=== PATIENT | male | born 1975 | race Caucasian/White ===

== ENCOUNTER 2018-03-21 23:34 | Emergency (ER) | payer SELFPAY ==
[~2018-03-21] VITALS: Ht 185.4 cm; Wt 93.0 kg
[2018-03-21] MEDS ORDERED: PLEASE ENTER ALLERGIES MC SCH (23:45)
[2018-03-21 23:53] LABS: BASOPHILS # (AUTO) 0.04 x10^3/uL (0-0.1); BASOPHILS % (AUTO) 0 % (0-1); EOSINOPHILS # (AUTO) 0.01 x10^3/uL (0-0.4); EOSINOPHILS % (AUTO) 0 % (1-7); LYMPHOCYTES # (AUTO) 1.92 x10^3/uL (1-3.4); LYMPHOCYTES % (AUTO) 11 % (22-44); MD NO; MEAN CORPUSCULAR HEMOGLOBIN 29.5 pg (27.5-34.5); MEAN CORPUSCULAR HGB CONC 33.8 g/dL (33.2-36.2); MEAN CORPUSCULAR VOLUME 87.3 fL (81-97); MEAN PLATELET VOLUME 7.8 fL (7.4-10.4); MONOCYTES # (AUTO) 1.08 x10^3/uL (0.2-0.8); MONOCYTES % (AUTO) 6 % (2-9); NEUTROPHILS % (AUTO) 82 % (42-75); PLATELET COUNT 207 x10^3/uL (130-400); RED BLOOD COUNT 4.59 x10^6/uL (4.38-5.82); RED CELL DISTRIBUTION WIDTH 13.6 % (9.4-14.8)
[2018-03-22] MEDS ORDERED: IBUPROFEN 200 MG TABLET PO ONE
[2018-03-22] MEDS ORDERED: ONDANSETRON ODT 4 MG PO ONE
[2018-03-22] MEDS ORDERED: LORazepam 1MG TABLET PO ONE
[2018-03-22] MEDS ORDERED: THIAMINE 100MG TABLET PO ONE
[2018-03-22 00:05] LABS: ALBUMIN 3.9 g/dL (3.4-5.0); ANION GAP 11 mmol/L (5-15); CHLORIDE 99 mmol/L (98-107); CREATININE 1.19 mg/dL (0.7-1.3); SALICYLATE LEVEL 1.9 mg/dL (2.8-20.0)
[2018-03-22 00:06] LABS: ACETAMINOPHEN < 2 mcg/mL (10-30)
[2018-03-22 00:07] LABS: AMPHETAMINE SCREEN, URINE Negative (Negative); BARBITURATE SCREEN, URINE Negative (Negative); BENZODIAZEPINE SCREEN, URINE Negative (Negative); CANNABINOID SCREEN, URINE Negative (Negative); COCAINE SCREEN, URINE Negative (Negative); METHADONE SCREEN, URINE Negative (Negative); OPIATE SCREEN, URINE Negative (Negative)
[2018-03-22] MEDS ORDERED: THIAMINE 100MG TABLET ONE (00:18)
[2018-03-22] MEDS ORDERED: ONDANSETRON ODT 4 MG ONE (00:18)
[2018-03-22] MEDS ORDERED: IBUPROFEN 200 MG TABLET ONE (00:19)
[2018-03-22] MEDS ORDERED: LORazepam 1MG TABLET ONE (00:19)
[2018-03-22 00:50] LABS: MICROSCOPIC NOT IND
[2018-03-22 01:09] LABS: CULTURE INDICATED? NO
[2018-03-22] MEDS ORDERED: PARO20TA98 PO (03:41)
[2018-03-22 05:23] VITALS: BP 139/78
== END 2018-03-22 05:25 | disposition home or self-care (01) ==
LOC: ED 23:59
DX: F10.229 Alcohol dependence with intoxication, unspecified (principal); Z72.9 Problem related to lifestyle, unspecified; Z75.9 Unspecified problem related to medical facilities and other health care; Z91.14 Patient's other noncompliance with medication regimen; Z63.8 Other specified problems related to primary support group; Y90.9 Presence of alcohol in blood, level not specified; Z88.8 Allergy status to other drugs, medicaments and biological substances
CPT/HCPCS: 36415; 71046; 80048; 80307; 80329; 81003; 82040; 85025; 99284; Q0162; G0480